=== PATIENT | female | born 1940 | race Caucasian/White ===

== ENCOUNTER 2018-08-11 15:35 | Inpatient (IN) | payer BC, MEDICARE, OTHER ==
[~2018-08-11] VITALS: Ht 167.6 cm; Wt 61.7 kg
[2018-08-11] MEDS ORDERED: LIDOCAINE 2%, 20ML INFIL ONE (16:00)
[2018-08-11 16:01] LABS: BASOPHILS # (AUTO) 0.02 x10^3/uL (0-0.1); BASOPHILS % (AUTO) 1 % (0-1); EOSINOPHILS # (AUTO) 0.07 x10^3/uL (0-0.4); EOSINOPHILS % (AUTO) 1 % (1-7); LYMPHOCYTES # (AUTO) 1.26 x10^3/uL (1-3.4); LYMPHOCYTES % (AUTO) 25 % (22-44); MD NO; MEAN CORPUSCULAR HEMOGLOBIN 30.9 pg (27.0-34.8); MEAN CORPUSCULAR HGB CONC 32.9 g/dL (32.4-35.8); MEAN CORPUSCULAR VOLUME 93.8 fL (80-100); MEAN PLATELET VOLUME 7.1 fL (7.4-10.4); MONOCYTES # (AUTO) 0.53 x10^3/uL (0.2-0.8); MONOCYTES % (AUTO) 10 % (2-9); NEUTROPHILS # (AUTO) 3.27 x10^3/uL (1.8-6.8); NEUTROPHILS % (AUTO) 63 % (42-75); PLATELET COUNT 223 x10^3/uL (130-400); RED BLOOD COUNT 4.01 x10^6/uL (3.82-5.3); RED CELL DISTRIBUTION WIDTH 16.7 % (9.6-15.2)
[2018-08-11 16:13] LABS: ALANINE AMINOTRANSFERASE 37 U/L (12-78); ALBUMIN 3.4 g/dL (3.4-5.0); ANION GAP 9 mmol/L (5-15); CALCIUM 8.8 mg/dL (8.5-10.1); CHLORIDE 108 mmol/L (98-107); CREATININE 0.92 mg/dL (0.55-1.02)
[2018-08-11 16:20] LABS: ALKALINE PHOSPHATASE 107 U/L (45-117); BILIRUBIN,TOTAL 0.4 mg/dL (0.2-1.0); TOTAL PROTEIN 6.7 g/dL (6.4-8.2); TROPONIN I < 0.015 ng/mL (0.000-0.045)
[2018-08-11] MEDS ORDERED: SERT100T32 PO (16:56)
[2018-08-11] MEDS ORDERED: CYAN10005 PO (16:56)
[2018-08-11] MEDS ORDERED: BIOT5CAP3 PO (16:57)
[2018-08-11] MEDS ORDERED: MULT-155 PO (16:57)
[2018-08-11] MEDS ORDERED: MAGN300C PO (16:57)
[2018-08-11] MEDS ORDERED: RIVA10TA2 PO (16:58)
--- NOTE | 2018-08-11 17:04 | NUR ---
Break RN note: Pt assisted to use bedpan to void. Pt positioned for comfort in bed, denies other needs.
[2018-08-11 17:09] LABS: PROTHROMBIN TIME 10.5 Seconds (9.6-11.5)
[2018-08-11] MEDS ORDERED: SODIUM CHLORIDE FLUSH 10ML SYR IVF PRN (17:30)
--- NOTE | 2018-08-11 17:30 | NUR ---
BRYNN AND PA CLEANING AND REPAIRING HEAD LACERATION. PT OFF FLOOR TO RADIOLOGY
--- NOTE | 2018-08-11 17:34 | NUR ---
REPORT TO DEEPAK YEH. AWAITING ORDERS FROM SALESPERSON DRIVER
--- NOTE | 2018-08-11 18:10 | NUR ---
HOSPITALIST AT BEDSIDE. PT A&O, CONVERSING WITH STAFF. NO BLEEDING AT SITE OF LACERATION
[2018-08-11] MEDS ORDERED: TEMAZEPAM 15 MG CAPSULE PO PRN (18:30)
[2018-08-11] MEDS ORDERED: ENALAPRILAT 1.25 MG/ML, 2ML IV PRN (18:30)
[2018-08-11] MEDS ORDERED: INSTRUCTION SEE COMMENTS XX ONE (18:30)
[2018-08-11] MEDS ORDERED: BISACODYL 10 MG SUPP PR PRN (18:30)
[2018-08-11] MEDS ORDERED: ONDANSETRON 4 MG TABLET PO PRN (18:30)
[2018-08-11 18:50] VITALS: BP 148/83
[2018-08-11] MEDS: ACETAMINOPHEN 325 MG TABLET PO PRN (20:02)
[2018-08-11 22:07] VITALS: BP 125/69
[2018-08-12 04:44] LABS: BASOPHILS # (AUTO) 0.05 x10^3/uL (0-0.1); BASOPHILS % (AUTO) 1 % (0-1); EOSINOPHILS # (AUTO) 0.08 x10^3/uL (0-0.4); EOSINOPHILS % (AUTO) 2 % (1-7); LYMPHOCYTES # (AUTO) 1.29 x10^3/uL (1-3.4); LYMPHOCYTES % (AUTO) 28 % (22-44); MD NO; MEAN CORPUSCULAR HEMOGLOBIN 31.8 pg (27.0-34.8); MEAN CORPUSCULAR HGB CONC 34.3 g/dL (32.4-35.8); MEAN CORPUSCULAR VOLUME 92.6 fL (80-100); MEAN PLATELET VOLUME 7.4 fL (7.4-10.4); MONOCYTES # (AUTO) 0.59 x10^3/uL (0.2-0.8); MONOCYTES % (AUTO) 13 % (2-9); NEUTROPHILS # (AUTO) 2.53 x10^3/uL (1.8-6.8); NEUTROPHILS % (AUTO) 56 % (42-75); PLATELET COUNT 193 x10^3/uL (130-400); RED BLOOD COUNT 3.65 x10^6/uL (3.82-5.3); RED CELL DISTRIBUTION WIDTH 16.7 % (9.6-15.2)
[2018-08-12 04:55] LABS: ALBUMIN 3.1 g/dL (3.4-5.0); ANION GAP 9 mmol/L (5-15); CALCIUM 8.9 mg/dL (8.5-10.1); CHLORIDE 108 mmol/L (98-107)
[2018-08-12 04:58] LABS: ALANINE AMINOTRANSFERASE 32 U/L (12-78); ALKALINE PHOSPHATASE 100 U/L (45-117); BILIRUBIN,TOTAL 0.9 mg/dL (0.2-1.0); CHOL/HDL RATIO 2.6; CHOLESTEROL, TOTAL 225 mg/dL (140-239); CREATININE 0.79 mg/dL (0.55-1.02); HDL CHOL % 39 % (28-40); HDL CHOLESTEROL (DIRECT) 87 mg/dL (40-60); LDL CHOLESTEROL,CALCULATED 124 mg/dL (54-169); LDL/HDL RATIO 1.4 (0.5-3.0); TOTAL PROTEIN 6.1 g/dL (6.4-8.2); TRIGLYCERIDES 72 mg/dL (50-200); VLDL CHOLESTEROL 14 mg/dL (0-25)
[2018-08-12] MEDS ORDERED: SERTRALINE 50MG TABLET ONE (08:34)
[2018-08-12] MEDS: SERTRALINE 100MG TABLET PO SCH (08:39)
[2018-08-12] MEDS ORDERED: TEMPLATE NON-FORMULARY MED. (Biotin** 5 MG) PO SCH (09:00)
[2018-08-12] MEDS: CYANOCOBALAMIN 1,000 MCG TABLET PO SCH (11:33)
[2018-08-12 12:47] LABS: MICROSCOPIC NOT IND
[2018-08-12 12:56] LABS: CULTURE INDICATED? NO
[2018-08-12] MEDS: CEFDINIR 300 MG CAPSULE PO SCH ×2 (13:36→22:17)
[2018-08-12 16:29] VITALS: BP 149/89
[2018-08-13] VITALS (9 sets, daily range): BP systolic 94–141; BP diastolic 62–83
[2018-08-13] MEDS: SERTRALINE 100MG TABLET PO SCH (08:45)
[2018-08-13] MEDS: CYANOCOBALAMIN 1,000 MCG TABLET PO SCH (08:45)
[2018-08-13] MEDS: CEFDINIR 300 MG CAPSULE PO SCH ×2 (08:45→20:45)
[2018-08-13] MEDS: SODIUM CHLORIDE 0.9% 1,000 ML IV SCH (16:14)
[2018-08-14] VITALS (7 sets, daily range): BP systolic 82–134; BP diastolic 54–83
[2018-08-14] MEDS: SODIUM CHLORIDE 0.9% 1,000 ML IV SCH ×3 (00:39→11:00)
[2018-08-14 07:42] LABS: ALANINE AMINOTRANSFERASE 20 U/L (12-78); ALBUMIN 2.6 g/dL (3.4-5.0); ANION GAP 5 mmol/L (5-15); CALCIUM 8.9 mg/dL (8.5-10.1); CHLORIDE 112 mmol/L (98-107); CREATININE 0.81 mg/dL (0.55-1.02)
[2018-08-14 07:44] LABS: ALKALINE PHOSPHATASE 72 U/L (45-117); BILIRUBIN,TOTAL 0.5 mg/dL (0.2-1.0); TOTAL PROTEIN 5.4 g/dL (6.4-8.2)
[2018-08-14 08:09] LABS: BASOPHILS # (AUTO) 0.03 x10^3/uL (0-0.1); BASOPHILS % (AUTO) 1 % (0-1); EOSINOPHILS # (AUTO) 0.16 x10^3/uL (0-0.4); EOSINOPHILS % (AUTO) 4 % (1-7); LYMPHOCYTES % (AUTO) 30 % (22-44); MD NO; MEAN CORPUSCULAR HEMOGLOBIN 30.7 pg (27.0-34.8); MEAN CORPUSCULAR HGB CONC 32.4 g/dL (32.4-35.8); MEAN CORPUSCULAR VOLUME 94.8 fL (80-100); MEAN PLATELET VOLUME 7.1 fL (7.4-10.4); MONOCYTES # (AUTO) 0.61 x10^3/uL (0.2-0.8); MONOCYTES % (AUTO) 13 % (2-9); NEUTROPHILS # (AUTO) 2.44 x10^3/uL (1.8-6.8); NEUTROPHILS % (AUTO) 53 % (42-75); PLATELET COUNT 230 x10^3/uL (130-400); RED BLOOD COUNT 3.61 x10^6/uL (3.82-5.3); RED CELL DISTRIBUTION WIDTH 16.3 % (9.6-15.2)
[2018-08-14] MEDS: CYANOCOBALAMIN 1,000 MCG TABLET PO SCH (09:00)
[2018-08-14] MEDS ORDERED: SODIUM CHLORIDE 0.9% 1,000 ML IV SCH (11:00)
[2018-08-14] MEDS: CEFDINIR 300 MG CAPSULE PO SCH ×2 (11:12→20:48)
[2018-08-14] MEDS: SERTRALINE 100MG TABLET PO SCH (11:12)
[2018-08-14] MEDS: ACETAMINOPHEN 325 MG TABLET PO PRN (11:17)
[2018-08-15] VITALS (8 sets, daily range): BP systolic 97–155; BP diastolic 64–79
[2018-08-15] MEDS: SODIUM CHLORIDE 0.9% 1,000 ML IV SCH ×2 (02:47→18:19)
[2018-08-15] MEDS: CEFDINIR 300 MG CAPSULE PO SCH ×2 (09:17→20:32)
[2018-08-15] MEDS: CYANOCOBALAMIN 1,000 MCG TABLET PO SCH (09:17)
[2018-08-15] MEDS: SERTRALINE 100MG TABLET PO SCH (09:17)
[2018-08-15] MEDS: RIVAROXABAN 10 MG TABLET PO SCH (10:02)
[2018-08-15] MEDS: MIDODRINE 2.5 MG TABLET PO SCH ×2 (13:11→20:32)
[2018-08-15] MEDS: ACETAMINOPHEN 325 MG TABLET PO PRN (20:37)
[2018-08-16] VITALS (11 sets, daily range): BP systolic 122–157; BP diastolic 67–95
[2018-08-16] MEDS: SODIUM CHLORIDE 0.9% 1,000 ML IV SCH ×2 (02:16→13:17)
[2018-08-16 05:20] LABS: BASOPHILS # (AUTO) 0.03 x10^3/uL (0-0.1); BASOPHILS % (AUTO) 1 % (0-1); EOSINOPHILS # (AUTO) 0.11 x10^3/uL (0-0.4); EOSINOPHILS % (AUTO) 3 % (1-7); LYMPHOCYTES # (AUTO) 0.99 x10^3/uL (1-3.4); LYMPHOCYTES % (AUTO) 30 % (22-44); MD NO; MEAN CORPUSCULAR HEMOGLOBIN 31.8 pg (27.0-34.8); MEAN CORPUSCULAR HGB CONC 33.7 g/dL (32.4-35.8); MEAN CORPUSCULAR VOLUME 94.2 fL (80-100); MEAN PLATELET VOLUME 6.8 fL (7.4-10.4); MONOCYTES % (AUTO) 15 % (2-9); NEUTROPHILS # (AUTO) 1.69 x10^3/uL (1.8-6.8); NEUTROPHILS % (AUTO) 51 % (42-75); PLATELET COUNT 206 x10^3/uL (130-400); RED BLOOD COUNT 3.33 x10^6/uL (3.82-5.3); RED CELL DISTRIBUTION WIDTH 16.1 % (9.6-15.2)
[2018-08-16 05:27] LABS: ALBUMIN 2.7 g/dL (3.4-5.0); ANION GAP 6 mmol/L (5-15); CALCIUM 8.7 mg/dL (8.5-10.1); CHLORIDE 115 mmol/L (98-107)
[2018-08-16 05:30] LABS: ALANINE AMINOTRANSFERASE 19 U/L (12-78); ALKALINE PHOSPHATASE 49 U/L (45-117); BILIRUBIN,TOTAL 0.5 mg/dL (0.2-1.0); CREATININE 0.64 mg/dL (0.55-1.02); TOTAL PROTEIN 5.4 g/dL (6.4-8.2)
[2018-08-16] MEDS ORDERED: COSYNTROPIN 0.25 MG IM ONE (08:00)
[2018-08-16] MEDS: ACETAMINOPHEN 325 MG TABLET PO PRN ×2 (08:25→20:33)
[2018-08-16] MEDS: RIVAROXABAN 10 MG TABLET PO SCH (08:26)
[2018-08-16] MEDS: CYANOCOBALAMIN 1,000 MCG TABLET PO SCH (08:26)
[2018-08-16] MEDS: SERTRALINE 100MG TABLET PO SCH (08:26)
[2018-08-16] MEDS: MIDODRINE 2.5 MG TABLET PO SCH ×2 (08:26→20:33)
[2018-08-16] MEDS: CEFDINIR 300 MG CAPSULE PO SCH ×2 (08:27→20:28)
[2018-08-17] VITALS (9 sets, daily range): BP systolic 118–156; BP diastolic 67–93
[2018-08-17] MEDS: SODIUM CHLORIDE 0.9% 1,000 ML IV SCH ×3 (00:04→16:00)
[2018-08-17 07:26] LABS: BASOPHILS # (AUTO) 0.05 x10^3/uL (0-0.1); BASOPHILS % (AUTO) 1 % (0-1); EOSINOPHILS # (AUTO) 0.09 x10^3/uL (0-0.4); EOSINOPHILS % (AUTO) 2 % (1-7); LYMPHOCYTES # (AUTO) 1.38 x10^3/uL (1-3.4); LYMPHOCYTES % (AUTO) 35 % (22-44); MD NO; MEAN CORPUSCULAR HEMOGLOBIN 30.9 pg (27.0-34.8); MEAN CORPUSCULAR HGB CONC 32.6 g/dL (32.4-35.8); MEAN CORPUSCULAR VOLUME 94.7 fL (80-100); MONOCYTES # (AUTO) 0.44 x10^3/uL (0.2-0.8); MONOCYTES % (AUTO) 11 % (2-9); NEUTROPHILS # (AUTO) 2.01 x10^3/uL (1.8-6.8); NEUTROPHILS % (AUTO) 51 % (42-75); PLATELET COUNT 255 x10^3/uL (130-400); RED BLOOD COUNT 3.73 x10^6/uL (3.82-5.3); RED CELL DISTRIBUTION WIDTH 16.6 % (9.6-15.2)
[2018-08-17 07:36] LABS: ALANINE AMINOTRANSFERASE 24 U/L (12-78); ALBUMIN 3.1 g/dL (3.4-5.0); ANION GAP 5 mmol/L (5-15); CALCIUM 9.1 mg/dL (8.5-10.1); CHLORIDE 113 mmol/L (98-107); CREATININE 0.83 mg/dL (0.55-1.02)
[2018-08-17 07:38] LABS: ALKALINE PHOSPHATASE 81 U/L (45-117); BILIRUBIN,TOTAL 0.7 mg/dL (0.2-1.0); TOTAL PROTEIN 6.3 g/dL (6.4-8.2)
[2018-08-17] MEDS: SERTRALINE 100MG TABLET PO SCH (10:29)
[2018-08-17] MEDS: CYANOCOBALAMIN 1,000 MCG TABLET PO SCH (10:29)
[2018-08-17] MEDS ORDERED: SENNA/DOCUSATE TABLET PO PRN (10:30)
[2018-08-17] MEDS: RIVAROXABAN 10 MG TABLET PO SCH (10:30)
[2018-08-17] MEDS: MIDODRINE 2.5 MG TABLET PO SCH ×2 (10:30→20:34)
[2018-08-17] MEDS ORDERED: POLYETHYLENE GLYCOL 17 GM PACKET NG ONE (11:00)
[2018-08-17] MEDS: ACETAMINOPHEN 325 MG TABLET PO PRN (20:34)
[2018-08-18] VITALS (10 sets, daily range): BP systolic 111–149; BP diastolic 76–91
[2018-08-18] MEDS: POLYETHYLENE GLYCOL 17 GM PACKET PO SCH (09:00)
[2018-08-18] MEDS: RIVAROXABAN 10 MG TABLET PO SCH (09:32)
[2018-08-18] MEDS: SERTRALINE 100MG TABLET PO SCH (09:33)
[2018-08-18] MEDS: CYANOCOBALAMIN 1,000 MCG TABLET PO SCH (09:33)
[2018-08-18] MEDS: MIDODRINE 2.5 MG TABLET PO SCH ×2 (09:33→21:22)
[2018-08-18] MEDS: DILTIAZEM 90 MG TABLET PO SCH (21:23)
[2018-08-18] MEDS: ACETAMINOPHEN 325 MG TABLET PO PRN (21:25)
[2018-08-19 03:54] VITALS: BP 128/77
[2018-08-19 07:50] VITALS: BP_SYST 112; BP_SYST 124; BP_DIAS 71; BP_DIAS 79
[2018-08-19] MEDS: SERTRALINE 100MG TABLET PO SCH (08:32)
[2018-08-19] MEDS: MIDODRINE 2.5 MG TABLET PO SCH (08:32)
[2018-08-19] MEDS: CYANOCOBALAMIN 1,000 MCG TABLET PO SCH (08:33)
[2018-08-19] MEDS: RIVAROXABAN 10 MG TABLET PO SCH (08:33)
[2018-08-19] MEDS: POLYETHYLENE GLYCOL 17 GM PACKET PO SCH (08:33)
[2018-08-19] MEDS: DILTIAZEM 90 MG TABLET PO SCH (08:33)
[2018-08-19 12:00] VITALS: BP 124/85
[2018-08-19] MEDS ORDERED: DILT90TA PO (13:34)
[2018-08-19] MEDS ORDERED: MIDO2.5T PO (13:34)
== END 2018-08-19 14:42 | disposition home health service (06) | DRG 73 ==
LOC: ED 16:54 → EDIP 17:30 → ICU 18:42 → 4WST 08-12 16:30 → DCLOUNGE 08-19 14:42
PROVIDERS: ADMIT Internal Medicine; ATTEND Internal Medicine
PROC: 0HQ0XZZ Repair Scalp Skin, External Approach (ICD-10-PCS; principal; 2018-08-11)
DX: G90.8 Other disorders of autonomic nervous system (principal); I60.9 Nontraumatic subarachnoid hemorrhage, unspecified; F33.9 Major depressive disorder, recurrent, unspecified; D68.69 Other thrombophilia; I48.0 Paroxysmal atrial fibrillation; I95.1 Orthostatic hypotension; G90.9 Disorder of the autonomic nervous system, unspecified; S01.01XA Laceration without foreign body of scalp, initial encounter; N32.81 Overactive bladder; M47.812 Spondylosis without myelopathy or radiculopathy, cervical region; M25.78 Osteophyte, vertebrae; J32.9 Chronic sinusitis, unspecified; K58.9 Irritable bowel syndrome, unspecified; M48.02 Spinal stenosis, cervical region; Z88.6 Allergy status to analgesic agent; Z90.710 Acquired absence of both cervix and uterus; Z90.49 Acquired absence of other specified parts of digestive tract; Z79.01 Long term (current) use of anticoagulants; Z87.891 Personal history of nicotine dependence; Z88.0 Allergy status to penicillin; Z88.1 Allergy status to other antibiotic agents; Z90.89 Acquired absence of other organs
CPT/HCPCS: 36415; 70450; 71045; 72125; 72141; 80053; 80061; 81003; 82533; 82962; 84484; 85025; 85610; 85730; 87081; 93005; 93306; 93880; 99285; G0378; Q0162; J0834; J7030

== ENCOUNTER 2019-05-25 12:16 | Inpatient (IN) | payer MEDICARE ==
[~2019-05-25] VITALS: Ht 167.6 cm; Wt 68.5 kg
[~2019-05-25 12:16] MED LIST: BIOT5CAP3 PO; CYAN-27 PO; DILT90TA PO; MAGN300C PO; MIDO2.5T PO; MULT-155 PO; RIVA10TA2 PO; SERT100T32 PO
--- NOTE | 2019-05-25 13:24 | NUR ---
CRISTELA WITH ASSISTANCE TO LEAH HANNON. RETURNED BY W/C. HR 135 ON RETURN TO [facility]
[2019-05-25] MEDS ORDERED: DILTIAZEM 5 MG/ML, 5ML ONE (13:26)
[2019-05-25] MEDS ORDERED: SODIUM CHLORIDE FLUSH 10ML SYR IVF ONE ×2 (13:30→14:00)
[2019-05-25] MEDS ORDERED: DILTIAZEM 5 MG/ML, 5ML IV ONE ×2 (13:30→14:00)
[2019-05-25 13:50] LABS: ALBUMIN 3.7 g/dL (3.4-5.0); ANION GAP 18 mmol/L (5-15); CALCIUM 8.3 mg/dL (8.5-10.1); CHLORIDE 105 mmol/L (98-107); CREATININE 0.99 mg/dL (0.55-1.02)
[2019-05-25 13:54] LABS: TROPONIN I < 0.015 ng/mL (0.000-0.045)
[2019-05-25 13:57] LABS: BASOPHILS # (AUTO) 0.04 x10^3/uL (0-0.1); BASOPHILS % (AUTO) 1 % (0-1); EOSINOPHILS # (AUTO) 0.01 x10^3/uL (0-0.4); EOSINOPHILS % (AUTO) 0 % (1-7); LYMPHOCYTES % (AUTO) 16 % (22-44); MD NO; MEAN CORPUSCULAR HEMOGLOBIN 28.7 pg (27.0-34.8); MEAN CORPUSCULAR HGB CONC 31.7 g/dL (32.4-35.8); MEAN CORPUSCULAR VOLUME 90.6 fL (80-100); MEAN PLATELET VOLUME 7.4 fL (7.4-10.4); MONOCYTES # (AUTO) 0.35 x10^3/uL (0.2-0.8); MONOCYTES % (AUTO) 6 % (2-9); NEUTROPHILS # (AUTO) 4.25 x10^3/uL (1.8-6.8); NEUTROPHILS % (AUTO) 77 % (42-75); PLATELET COUNT 200 x10^3/uL (130-400); RED BLOOD COUNT 4.32 x10^6/uL (3.82-5.3); RED CELL DISTRIBUTION WIDTH 20.1 % (9.6-15.2)
[2019-05-25] MEDS ORDERED: SODIUM CHLORIDE 0.9% 1,000ML IVBOLUS ONE (14:00)
--- NOTE | 2019-05-25 14:17 | NUR ---
IV BOLUS INFUSING. AWAITING SECOND DOSE OF DILTIAZEM FROM PHARMACY
--- NOTE | 2019-05-25 14:32 | NUR ---
MEDICATED WITH DILTIAZEM NOTED ON MAR
--- NOTE | 2019-05-25 15:10 | NUR ---
PT ASSISTED TO BATHROOM. HR 130 ON RETURN TO [facility]. AFTER RESTING BRIEFLY HR 115.
[2019-05-25] MEDS ORDERED: DEXL60CA2 PO (16:56)
[2019-05-25] MEDS ORDERED: DILT30TA33 PO (16:56)
[2019-05-25] MEDS ORDERED: MIRA25TA PO (16:56)
[2019-05-25] MEDS ORDERED: SODIUM CHLORIDE FLUSH 10ML SYR IVF PRN (17:00)
[2019-05-25] MEDS: SODIUM CHLORIDE 0.9% 1,000 ML IV SCH (17:14)
[2019-05-25] MEDS ORDERED: ONDANSETRON 2MG/ML, 2ML IVPush PRN (17:30)
[2019-05-25] MEDS ORDERED: PROMETHAZINE 25 MG/ML, 1ML IM PRN (17:30)
[2019-05-25 17:38] LABS: BASOPHILS # (AUTO) 0.04 x10^3/uL (0-0.1); BASOPHILS % (AUTO) 1 % (0-1); EOSINOPHILS # (AUTO) 0.01 x10^3/uL (0-0.4); EOSINOPHILS % (AUTO) 0 % (1-7); LYMPHOCYTES # (AUTO) 1.39 x10^3/uL (1-3.4); LYMPHOCYTES % (AUTO) 27 % (22-44); MD NO; MEAN CORPUSCULAR HGB CONC 32.1 g/dL (32.4-35.8); MEAN CORPUSCULAR VOLUME 90.2 fL (80-100); MEAN PLATELET VOLUME 7.1 fL (7.4-10.4); MONOCYTES # (AUTO) 0.61 x10^3/uL (0.2-0.8); MONOCYTES % (AUTO) 12 % (2-9); NEUTROPHILS # (AUTO) 3.16 x10^3/uL (1.8-6.8); NEUTROPHILS % (AUTO) 61 % (42-75); PLATELET COUNT 171 x10^3/uL (130-400); RED BLOOD COUNT 3.82 x10^6/uL (3.82-5.3); RED CELL DISTRIBUTION WIDTH 20.2 % (9.6-15.2)
[2019-05-25 17:50] LABS: TROPONIN I < 0.015 ng/mL (0.000-0.045)
[2019-05-25] MEDS ORDERED: ONDANSETRON 2MG/ML, 2ML ONE (17:50)
[2019-05-25] MEDS: DILTIAZEM 125 MG in SODIUM CHLORIDE 0.9% 100 ML IV SCH (18:09)
--- NOTE | 2019-05-25 18:51 | NUR ---
AWAITING TRANSPORT. REPORT TO JASON YEH
[2019-05-25 20:25] VITALS: BP 125/76
[2019-05-25] MEDS ORDERED: DIPHENHYDRAMINE 25 MG CAPSULE ONE (23:21)
[2019-05-25] MEDS: DIPHENHYDRAMINE 25 MG CAPSULE PO PRN (23:22)
[2019-05-25 23:33] VITALS: BP 132/68
[2019-05-25 23:55] LABS: TROPONIN I < 0.015 ng/mL (0.000-0.045)
[2019-05-26] VITALS (9 sets, daily range): BP systolic 79–118; BP diastolic 50–73
[2019-05-26] MEDS: SODIUM CHLORIDE 0.9% 1,000 ML IV SCH ×2 (03:14→13:14)
[2019-05-26] MEDS: DILTIAZEM 125 MG in SODIUM CHLORIDE 0.9% 100 ML IV SCH (04:00)
[2019-05-26 05:47] LABS: ALBUMIN 2.9 g/dL (3.4-5.0); ANION GAP 12 mmol/L (5-15); CALCIUM 8.1 mg/dL (8.5-10.1); CHLORIDE 105 mmol/L (98-107)
[2019-05-26 05:52] LABS: ALKALINE PHOSPHATASE 65 U/L (45-117); BILIRUBIN,TOTAL 0.8 mg/dL (0.2-1.0); CREATININE 0.77 mg/dL (0.55-1.02); TOTAL PROTEIN 5.7 g/dL (6.4-8.2); TROPONIN I < 0.015 ng/mL (0.000-0.045)
[2019-05-26 05:58] LABS: ALANINE AMINOTRANSFERASE 36 U/L (12-78)
[2019-05-26] MEDS: (Mirabegron** (Myrbetriq**) 25 MG) HOMEMEDPO SCH (09:00)
[2019-05-26] MEDS ORDERED: DILTIAZEM 60 MG CAP.ER.12H PO SCH (09:00)
[2019-05-26] MEDS: RIVAROXABAN 10 MG TABLET PO SCH (09:17)
[2019-05-26] MEDS: SERTRALINE 100MG TABLET PO SCH (09:17)
[2019-05-26] MEDS ORDERED: GLUCAGON 1 MG IM PRN (16:00)
[2019-05-26] MEDS ORDERED: DEXTROSE 4 GM TAB.CHEW PO PRN (16:00)
[2019-05-26] MEDS ORDERED: DEXTROSE 50%, 50ML SYRINGE IVPush PRN (16:00)
[2019-05-26] MEDS ORDERED: POTASSIUM CHLORIDE 10 MEQ in D5%-0.45% NACL 1,000 ML IV SCH (16:00)
[2019-05-26] MEDS: DILTIAZEM 60 MG CAP.ER.12H PO SCH ×2 (16:20→20:48)
[2019-05-26] MEDS: SODIUM CHLORIDE FLUSH 10ML SYR IVF SCH (20:46)
[2019-05-26] MEDS: DIPHENHYDRAMINE 25 MG CAPSULE PO PRN (20:47)
[2019-05-26] MEDS ORDERED: MIDODRINE 2.5 MG TABLET PO SCH (21:00)
[2019-05-27] VITALS (8 sets, daily range): BP systolic 94–137; BP diastolic 64–76
[2019-05-27] MEDS: MIDODRINE 2.5 MG TABLET PO SCH ×2 (08:58→19:52)
[2019-05-27] MEDS: DILTIAZEM 60 MG CAP.ER.12H PO SCH ×3 (08:58→19:52)
[2019-05-27] MEDS: SODIUM CHLORIDE FLUSH 10ML SYR IVF SCH ×2 (08:58→19:54)
[2019-05-27] MEDS: RIVAROXABAN 10 MG TABLET PO SCH (08:59)
[2019-05-27] MEDS: SERTRALINE 100MG TABLET PO SCH (08:59)
[2019-05-27] MEDS: (Mirabegron** (Myrbetriq**) 25 MG) HOMEMEDPO SCH (09:01)
[2019-05-27] MEDS ORDERED: AMIODARONE 50 MG/ML, 3ML IVPush ONE (11:00)
[2019-05-27] MEDS ORDERED: AMIODARONE 150 MG in DEXTROSE 5% 100 ML IV ONE ×2 (11:00→18:30)
[2019-05-27] MEDS ORDERED: FILTER 0.22 MICRON FOR AMIODARONE IV PRN ×2 (11:00→18:30)
[2019-05-27] MEDS: AMIODARONE 200 MG TABLET PO SCH ×2 (11:44→19:53)
[2019-05-27] MEDS: DIPHENHYDRAMINE 25 MG CAPSULE PO PRN (19:52)
[2019-05-28 02:46] VITALS: BP 114/75
[2019-05-28 07:06] VITALS: BP 103/66
[2019-05-28] MEDS: (Mirabegron** (Myrbetriq**) 25 MG) HOMEMEDPO SCH (09:19)
[2019-05-28] MEDS: SERTRALINE 100MG TABLET PO SCH (09:22)
[2019-05-28] MEDS: DILTIAZEM 60 MG CAP.ER.12H PO SCH (09:22)
[2019-05-28] MEDS: MIDODRINE 2.5 MG TABLET PO SCH ×2 (09:22→20:39)
[2019-05-28] MEDS: SODIUM CHLORIDE FLUSH 10ML SYR IVF SCH ×2 (09:23→20:39)
[2019-05-28] MEDS: AMIODARONE 200 MG TABLET PO SCH ×2 (09:23→20:38)
[2019-05-28 12:50] VITALS: BP 124/84
[2019-05-28] MEDS ORDERED: RIVAROXABAN 20 MG TABLET PO SCH (17:00)
[2019-05-28] MEDS: DIPHENHYDRAMINE 25 MG CAPSULE PO PRN (20:39)
[2019-05-28 21:50] VITALS: BP 127/79
[2019-05-29 03:10] VITALS: BP 124/70
[2019-05-29 07:47] VITALS: BP_SYST 100; BP_SYST 130; BP_DIAS 55; BP_DIAS 86
[2019-05-29] MEDS: (Mirabegron** (Myrbetriq**) 25 MG) HOMEMEDPO SCH (09:00)
[2019-05-29] MEDS: SODIUM CHLORIDE FLUSH 10ML SYR IVF SCH (09:00)
[2019-05-29] MEDS ORDERED: AMIO200T42 PO (10:19)
[2019-05-29] MEDS ORDERED: RIVA20TA PO (10:19)
[2019-05-29] MEDS ORDERED: MIDO2.5T PO (10:19)
[2019-05-29] MEDS: AMIODARONE 200 MG TABLET PO SCH (11:06)
[2019-05-29] MEDS: MIDODRINE 2.5 MG TABLET PO SCH (11:06)
[2019-05-29] MEDS: SERTRALINE 100MG TABLET PO SCH (11:06)
[2019-05-29] MEDS ORDERED: RIVAROXABAN 20 MG TABLET PO SCH (17:00)
[2019-05-29] MEDS ORDERED: RIVAROXABAN 15 MG TABLET PO SCH (17:00)
== END 2019-05-29 12:46 | disposition home health service (06) | DRG 309 ==
LOC: ED 16:40 → EDIP 16:41 → ED 16:53 → 5SO 18:40 → DCLOUNGE 05-29 12:23
PROVIDERS: ADMIT Internal Medicine; ATTEND Internal Medicine
DX: I48.0 Paroxysmal atrial fibrillation (principal); E87.2 Acidosis; D68.69 Other thrombophilia; I48.92 Unspecified atrial flutter; I95.1 Orthostatic hypotension; K58.9 Irritable bowel syndrome, unspecified; N32.81 Overactive bladder; E16.2 Hypoglycemia, unspecified; I10 Essential (primary) hypertension; Z87.891 Personal history of nicotine dependence; Z90.710 Acquired absence of both cervix and uterus; Z88.6 Allergy status to analgesic agent; Z88.0 Allergy status to penicillin; Z88.8 Allergy status to other drugs, medicaments and biological substances
CPT/HCPCS: 36415; 71045; 80048; 80053; 82040; 82533; 82962; 84443; 84484; 85025; 93005; 93306; 96374; 96375; G0378; J2405; J3480; J0282; J7030; Q0163

== ENCOUNTER → 2019-12-01 | Outpatient (CLI) | payer MEDICARE ==
[~2019-12-01] MED LIST changes: +AMIO200T42 PO; +DEXL60CA2 PO; +DILT30TA33 PO; +MIRA25TA PO; +RIVA20TA PO
[2019-12-01 12:44] LABS: BASOPHILS # (AUTO) 0.01 x10^3/uL (0-0.1); BASOPHILS % (AUTO) 0 % (0-1); EOSINOPHILS # (AUTO) 0.08 x10^3/uL (0-0.4); EOSINOPHILS % (AUTO) 2 % (1-7); LYMPHOCYTES # (AUTO) 1.37 x10^3/uL (1-3.4); LYMPHOCYTES % (AUTO) 32 % (22-44); MD NO; MEAN CORPUSCULAR HEMOGLOBIN 34.8 pg (27.0-34.8); MEAN CORPUSCULAR HGB CONC 32.8 g/dL (32.4-35.8); MEAN CORPUSCULAR VOLUME 106.1 fL (80-100); MEAN PLATELET VOLUME 8.3 fL (7.4-10.4); MONOCYTES # (AUTO) 0.53 x10^3/uL (0.2-0.8); MONOCYTES % (AUTO) 12 % (2-9); NEUTROPHILS # (AUTO) 2.25 x10^3/uL (1.8-6.8); NEUTROPHILS % (AUTO) 53 % (42-75); PLATELET COUNT 264 x10^3/uL (130-400); RED BLOOD COUNT 3.81 x10^6/uL (3.82-5.3); RED CELL DISTRIBUTION WIDTH 15.5 % (9.6-15.2)
[2019-12-01 13:55] LABS: CHLORIDE 106 mmol/L (98-107)
[2019-12-01 14:12] LABS: ALANINE AMINOTRANSFERASE 37 U/L (12-78); ALBUMIN 3.8 g/dL (3.4-5.0); ALKALINE PHOSPHATASE 120 U/L (45-117); ANION GAP 10 mmol/L (5-15); BILIRUBIN,TOTAL 0.7 mg/dL (0.2-1.0); CALCIUM 9.1 mg/dL (8.5-10.1); CHOL/HDL RATIO 4.1; CHOLESTEROL, TOTAL 249 mg/dL (140-239); CREATININE 1.07 mg/dL (0.55-1.02); HDL CHOL % 24 % (28-40); HDL CHOLESTEROL (DIRECT) 61 mg/dL (40-60); LDL CHOLESTEROL,CALCULATED 152 mg/dL (54-169); LDL/HDL RATIO 2.5 (0.5-3.0); T4 (THYROXINE) 9.5 mcg/dL (4.8-13.9); TOTAL PROTEIN 7.4 g/dL (6.4-8.2); TRIGLYCERIDES 179 mg/dL (50-200); VLDL CHOLESTEROL 36 mg/dL (0-25)
== END | disposition home or self-care (01) ==
LOC: CFH 08:17
PROVIDERS: ATTEND Physician Assistant Medical
DX: I48.91 Unspecified atrial fibrillation (principal); R55 Syncope and collapse
CPT/HCPCS: 36415; 80053; 80061; 84436; 84443; 84481; 85025

== ENCOUNTER 2019-12-07 07:16 | Outpatient (CLI) | payer MEDICARE ==
[2019-12-07] MEDS ORDERED: REGADENOSON 0.4 MG/5 ML SYRINGE ONE (07:34)
== END 2019-12-07 23:59 | disposition home or self-care (01) ==
LOC: CFH 07:16
PROVIDERS: ATTEND Internal Medicine Cardiovascular Disease
DX: I48.91 Unspecified atrial fibrillation (principal); R55 Syncope and collapse
CPT/HCPCS: 78452; 93017; A9502; J2785

== ENCOUNTER 2020-08-12 15:47 | Outpatient (CLI) | payer MEDICARE | END 2020-08-12 23:59 | disposition home or self-care (01) | LOC: CVU 15:47 | PROVIDERS: ATTEND Internal Medicine Cardiovascular Disease | DX: I65.23 Occlusion and stenosis of bilateral carotid arteries (principal); R55 Syncope and collapse | CPT/HCPCS: 93880 ==